=== PATIENT | female | born 1995 | race African-American/Black ===

== ENCOUNTER 2018-02-23 18:16 | Emergency (ER) | payer BC ==
[~2018-02-23] VITALS: Ht 166.4 cm; Wt 62.9 kg
[2018-02-23 18:23] VITALS: TEMP 36.9; Ht 166.4 cm; Wt 62.9 kg
[2018-02-23 18:59] LABS: BASO % 0.4 %; BASO ABS # 0.02 K/uL (0-0.2); EOS % 0.8 %; EOS ABS # 0.04 K/uL (0-0.5); HEMATOCRIT 36.6 % (37-47); HEMOGLOBIN 12.7 g/dL (12.0-16.0); IG# 0.01 K/uL (0.00-0.02); LYMPH % 27.1 %; LYMPH ABS # 1.39 K/uL (1.2-3.4); MEAN CELL VOLUME 86.9 fL (80-100); MEAN CORPUSCULAR HEMOGLOBIN 30.2 pg (25-34); MEAN CORPUSCULAR HGB CONC 34.7 g/dl (32-36); MONO ABS # 0.36 K/uL (0.11-0.59); NEUT % 64.5 %; NEUT ABS # 3.31 K/uL (1.4-6.5); PLATELET COUNT 190 K/uL (130-400); RED CELL DISTRIBUTION WIDTH CV 13.4 % (11.5-14.5); RED CELL DISTRIBUTION WIDTH SD 43.1 fL (36.4-46.3); WHITE BLOOD COUNT 5.13 K/uL (4.8-10.8)
[2018-02-23 19:16] LABS: CALCIUM 8.8 mg/dl (8.5-10.1); CREATININE 0.75 mg/dl (0.60-1.20); INR 1.1 (0.9-1.1); POTASSIUM 3.7 mmol/L (3.5-5.1); PTT PATIENT 26.1 SECONDS (21.0-31.0)
--- NOTE | 2018-02-23 19:49 | DIAGNOSTIC IMAGING REPORT ---
PELVIC COMPLETE NON OB CLINICAL HISTORY: prolonged menstrual period. Mild LLQ pain. PAIN COMPARISON STUDY: None FINDINGS: The uterus measured 7.8 cm. The endometrial stripe measured 6 mm. The right ovary measured 4 cm maximum dimension with normal vascular flow. Very small follicular cyst.. The left ovary measured 3.2 cm maximum dimension with normal vascular flow. Several very small ovarian follicular cyst.. There is no ultrasonographic evidence of ovarian torsion. It should be noted that ovarian torsion can be present with normal Doppler ultrasonographic findings. There was no evidence of pathologic free pelvic fluid. IMPRESSION: Negative study. The above report was generated using voice recognition software. It may contain grammatical, syntax or spelling errors. Electronically signed by: Kwaku Contreras M.D. 02/23/2018 7:48 PM Dictated Date/Time: 02/23/2018 7:47 PM
[2018-02-23] MEDS ORDERED: NORGTAB36 PO (20:59)
--- NOTE | 2018-02-23 21:01 | EMERGENCY ROOM VISIT NOTE ---
History Report prepared by Doyle: John Fuentes Under the Supervision of: Clark CampaO. First contact with patient: 18:26 Chief Complaint: ABDOMINAL PAIN Stated Complaint: PROLONGED PERIOD, ABDOMINAL PAIN History of Present Illness The patient is a 22 year old female who presents to the Emergency Room with complaints of persistent vaginal bleeding for one month. She states that she has been been on her period for one month with heavy bleeding. She has been going through 11 tampons per day. She notes that her normal periods are for seven days and she normally goes through about 7 tampons per day. She has a family history of fibroids. She notes LLQ abdominal pain. She does not have a local supplier quality manager. She felt lightheaded once, though associates it with staying up late studying for finals. She denies any underlying medical problems. She denies any back pain. She denies any control use or other medication use. She denies any chance of . Source of History: patient Onset: one month Position: other (vaginal) Quality: other (bleeding) Timing: other (persistent) Associated Symptoms: + abdominal pain, No back pain Review of Systems See HPI for pertinent positives & negatives. A total of 10 systems reviewed and were otherwise negative. Past Medical & Surgical Medical Problems: (1) Asthma Family History Diabetes mellitus Hypertension Social History Smoking Status: Never Smoker Smokeless Tobacco Use: No Alcohol Use: none Drug Use: none Marital Status: single Housing Status: lives with roommate Occupation Status: [employer] student Current/Historical Medications Scheduled Norgestimate-Ethinyl Estradiol (Ortho Tri-Cyclen), 1 TAB PO DAILY Allergies Coded Allergies: No Known Allergies (Unverified , 02/23/18) Physical Exam Vital Signs Date Time Temp Pulse Resp B/P (MAP) Pulse Ox O2 Delivery O2 Flow Rate FiO2 02/23/18 20:19 72 17 93/71 100 Room Air 02/23/18 18:23 36.9 64 20 111/64 100 Room Air Physical Exam CONSTITUTIONAL/VITAL SIGNS: Reviewed / noted above. GENERAL: Non-toxic in appearance. INTEGUMENTARY: Warm, dry, and [place]. HEAD: Normocephalic. EYES: without scleral icterus or trauma. ENT/OROPHARYNX: clear and moist. LYMPHADENOPATHY/NECK: Is supple without lymphadenopathy or meningismus. RESPIRATORY: Lungs clear and equal. CARDIOVASCULAR: Regular rate and rhythm. GI/ABDOMEN: Soft and nontender. No organomegaly or pulsatile mass. No rebound or guarding. Normal bowel sounds. EXTREMITIES: Warm and well perfused. BACK: No CVA tenderness. NEUROLOGICAL: Intact without focal deficits. PSYCHIATRIC: normal affect. MUSCULOSKELETAL: Normally developed with good muscle tone. Medical Decision & Procedures ER Provider Diagnostic Interpretation: Radiology results as stated below per my review and radiologist interpretation: PELVIC COMPLETE NON OB CLINICAL HISTORY: prolonged menstrual period. Mild LLQ pain. PAIN COMPARISON STUDY: None FINDINGS: The uterus measured 7.8 cm. The endometrial stripe measured 6 mm. The right ovary measured 4 cm maximum dimension with normal vascular flow. Very small follicular cyst.. The left ovary measured 3.2 cm maximum dimension with normal vascular flow. Several very small ovarian follicular cyst.. There is no ultrasonographic evidence of ovarian torsion. It should be noted that ovarian torsion can be present with normal Doppler ultrasonographic findings. There was no evidence of pathologic free pelvic fluid. IMPRESSION: Negative study. The above report was generated using voice recognition software. It may contain grammatical, syntax or spelling errors. Electronically signed by: Kwaku Contreras M.D. 02/23/2018 7:48 PM Dictated Date/Time: 02/23/2018 7:47 PM Laboratory Results 02/23/18 18:50 Red Blood Count 4.21, Mean Corpuscular Volume 86.9, Mean Corpuscular Hemoglobin 30.2, Mean Corpuscular Hemoglobin Concent 34.7, Mean Platelet Volume 10.0, Neutrophils (%) (Auto) 64.5, Lymphocytes (%) (Auto) 27.1, Monocytes (%) (Auto) 7.0, Eosinophils (%) (Auto) 0.8, Basophils (%) (Auto) 0.4, Neutrophils # (Auto) 3.31, Lymphocytes # (Auto) 1.39, Monocytes # (Auto) 0.36, Eosinophils # (Auto) 0.04, Basophils # (Auto) 0.02 02/23/18 18:50 Test 02/23/18 18:50 White Blood Count 5.13 K/uL (4.8-10.8) Red Blood Count 4.21 M/uL (4.2-5.4) Hemoglobin 12.7 g/dL (12.0-16.0) Hematocrit 36.6 % (37-47) Mean Corpuscular Volume 86.9 fL (80-100) Mean Corpuscular Hemoglobin 30.2 pg (25-34) Mean Corpuscular Hemoglobin Concent 34.7 g/dl (32-36) Platelet Count 190 K/uL (130-400) Mean Platelet Volume 10.0 fL (7.4-10.4) Neutrophils (%) (Auto) 64.5 % Lymphocytes (%) (Auto) 27.1 % Monocytes (%) (Auto) 7.0 % Eosinophils (%) (Auto) 0.8 % Basophils (%) (Auto) 0.4 % Neutrophils # (Auto) 3.31 K/uL (1.4-6.5) Lymphocytes # (Auto) 1.39 K/uL (1.2-3.4) Monocytes # (Auto) 0.36 K/uL (0.11-0.59) Eosinophils # (Auto) 0.04 K/uL (0-0.5) Basophils # (Auto) 0.02 K/uL (0-0.2) RDW Standard Deviation 43.1 fL (36.4-46.3) RDW Coefficient of Variation 13.4 % (11.5-14.5) Immature Granulocyte % (Auto) 0.2 % Immature Granulocyte # (Auto) 0.01 K/uL (0.00-0.02) Prothrombin Time 11.8 SECONDS (9.0-12.0) Prothromb Time International Ratio 1.1 (0.9-1.1) Activated Partial Thromboplast Time 26.1 SECONDS (21.0-31.0) Partial Thromboplastin Ratio 1.0 Urine Color YELLOW Urine Appearance CLEAR (CLEAR) Urine pH 6.5 (4.5-7.5) Urine Specific [place] 1.017 (1.000-1.030) Urine Protein NEG (NEG) Urine Glucose (UA) NEG (NEG) Urine Ketones NEG (NEG) Urine Occult Blood NEG (NEG) Urine Nitrite NEG (NEG) Urine Bilirubin NEG (NEG) Urine Urobilinogen NEG (NEG) Urine Leukocyte Esterase NEG (NEG) Urine Test NEG (NEG) Anion Gap 4.0 mmol/L (3-11) Est Creatinine Clear Calc Drug Dose 109.9 ml/min Estimated GFR () 133.0 Estimated GFR (Non- 114.7 BUN/Creatinine Ratio 15.2 (10-20) Calcium Level 8.8 mg/dl (8.5-10.1) Laboratory results as stated above per my review. ED Course 1827: Previous medical records were reviewed. The patient was evaluated in room B10. A complete history and physical examination was performed. 2054: I spoke with POLLY Moran. We discussed the patients case. She recommended the patient be placed on control pills. 2057: I reassessed the patient at this time. I discussed the results and treatment plan with the patient. I answered all pertaining questions that she had. She expressed understanding and verbalized agreement. The patient will be discharged home. Medical Decision Differential diagnosis: Etiologies such as ectopic , dysfunction uterine bleeding, bleeding dyscrasia, trauma, infection, as well as others were entertained. This is a 22-year-old female who presents to the ED with a chief complaint of abnormal menstrual bleeding. The patient states that she has been having her period for almost a month. She states that she goes through about 10 tampons per day. She states that her typical. Last for 7 days and is light and then heavy and then light again. She usually only goes through 7-8 tampons on the heaviest part of it. The patient denies having any lightheadedness, dizziness, palpitations, shortness of breath. She is a student. She will be going back to [place] in about 1 month. She does not have a local supplier quality manager. The patient did report a mild left lower quadrant abdominal pain in her left shoulder pain. She states that she thought her mother and her mother has history of fibroids and had heavy vaginal bleeding related to this. The patient 's blood work was normal. Hemoglobin is 12.7. test was negative. Urine did not show infection. Ultrasound of the uterus was normal. The patient was told the results. I spoke with gynecology who recommended placing the patient on control. She was placed on Ortho Tri-Cyclen. The patient is in agreement with this. She has no history of blood clots and is not a smoker. She is felt to be stable for discharge. Medication Reconcilliation Current Medication List: was personally reviewed by me Blood Pressure Screening Patient's blood pressure: Normal blood pressure Impression Primary Impression: Heavy menstrual bleeding Scribe Attestation The scribe's documentation has been prepared under my direction and personally reviewed by me in its entirety. I confirm that the note above accurately reflects all work, treatment, procedures, and medical decision making performed by me. Departure Information Dispostion Home / Self-Care Prescriptions Norgestimate-Ethinyl Estradiol (ORTHO TRI-CYCLEN) 1 Tab Tab 1 TAB PO DAILY for 28 Days, #28 TAB 11 Refills Prov: Hector Yuan D.O. 02/23/18 Referrals No Doctor, Assigned (PCP) Forms HOME CARE DOCUMENTATION FORM, IMPORTANT VISIT INFORMATION, School Instructions Patient Instructions My [facility] Additional Instructions Your ultrasound today was normal. Your hemoglobin is 12.7. This is within normal range for your red blood cell count. Ortho Tri-Cyclen as prescribed. Follow-up with your supplier quality manager.
[2018-02-23 21:09] VITALS: BP 109/67; PULSE 49; O2SAT 100
== END 2018-02-23 21:15 | disposition home or self-care (01) ==
LOC: C.EDB 18:19
DX: R10.32 Left lower quadrant pain (principal); N92.1 Excessive and frequent menstruation with irregular cycle; Z84.2 Family history of other diseases of the genitourinary system